=== PATIENT | male | born 1975 | race Caucasian/White ===

== ENCOUNTER 2021-05-21 03:50 | Emergency (ER) | payer OTHER ==
[2021-05-21 04:16] VITALS: BP 148/91; PULSE 94; TEMP 97.5; BMI 26.1
== END 2021-05-21 05:13 | disposition home or self-care (01) ==
LOC: JER 03:50
PROC: 0HQ1XZZ Repair Face Skin, External Approach (ICD-10-PCS; principal; 2021-05-21)
DX: S01.111A Laceration without foreign body of right eyelid and periocular area, initial encounter (principal); W26.0XXA Contact with knife, initial encounter
CPT/HCPCS: 99282-25

== ENCOUNTER 2021-05-25 08:09 | Emergency (ER) | payer OTHER ==
[2021-05-25 08:39] VITALS: BP 152/94; PULSE 98; TEMP 98; BMI 27.5
== END 2021-05-25 09:09 | disposition home or self-care (01) ==
LOC: JER 08:09 → JERFT 08:09
DX: S01.81XA Laceration without foreign body of other part of head, initial encounter (principal); W26.0XXA Contact with knife, initial encounter; Z48.02 Encounter for removal of sutures
CPT/HCPCS: 99281-25